=== PATIENT | female | born 1960 | race Caucasian/White ===

== ENCOUNTER 2018-10-31 08:08 | Emergency (ER) | payer OTHER ==
[2018-10-31] MEDS: KETOROLAC 15 MG INJ IV (10:18)
[2018-10-31] MEDS: ONDANSETRON 4 MG INJ IV (10:18)
[2018-10-31] MEDS: FAMOTIDINE 20 MG TAB PO (10:18)
[2018-10-31] MEDS: LIDOCAINE/MYLANTA 40 ML BTL PO (10:19)
[2018-10-31] MEDS: BELLADONNA/PHENOBARBITAL TAB PO (10:19)
[2018-10-31] MEDS: SOD CHLORIDE 0.9% 1,000 ML IV (10:20)
== END 2018-10-31 12:09 | disposition home or self-care (01) ==
LOC: E/R 08:08
DX: R10.13 Epigastric pain (principal); E66.9 Obesity, unspecified; Z68.33 Body mass index [BMI] 33.0-33.9, adult
CPT/HCPCS: 36415; 80053; 81003; 83690; 84484; 85025; 93005; 96374; 96375; 99284-25